=== PATIENT | male | born 1960 | race Native Hawaiian/Other Pacific Islander ===

== ENCOUNTER 2017-10-17 09:53 | Outpatient (CLI) | payer BC ==
[~2017-10-17 09:53] MED LIST: ASTAGRAF XL1 MG PO; DILT30TA24 PO; JANUVIA100 MG PO; OMEPRAZOLE40 MG PO
[2017-10-17 10:08] LABS: PLATELET COUNT 217 K/uL (142-355)
[2017-10-17 10:23] LABS: POTASSIUM 3.7 mmol/L (3.6-5.2)
== END 2017-10-17 19:43 | disposition home or self-care (01) ==
LOC: LABW 09:53
PROVIDERS: Internal Medicine Pulmonary Disease
DX: Z94.2 Lung transplant status (principal); Z29.8 Encounter for other specified prophylactic measures; E83.49 Other disorders of magnesium metabolism; Z79.899 Other long term (current) drug therapy; Z51.81 Encounter for therapeutic drug level monitoring
CPT/HCPCS: 36415; 80053; 80197; 83735; 85027

== ENCOUNTER 2017-12-18 09:12 | Outpatient (CLI) | payer BC ==
[2017-12-18 09:53] LABS: POTASSIUM 3.9 mmol/L (3.6-5.2)
[2017-12-18 09:56] LABS: PLATELET COUNT 203 K/uL (142-355)
[2018-02-07] MEDS ORDERED: MAGNESIUM GLUCONATE PO (07:28)
== END 2017-12-18 23:11 | disposition home or self-care (01) ==
LOC: LABW 09:12
PROVIDERS: Internal Medicine Pulmonary Disease
DX: Z94.2 Lung transplant status (principal); T86.819 Unspecified complication of lung transplant; Z29.8 Encounter for other specified prophylactic measures; E83.49 Other disorders of magnesium metabolism; Z79.899 Other long term (current) drug therapy; Z51.81 Encounter for therapeutic drug level monitoring
CPT/HCPCS: 36415; 80053; 80197; 83735; 85027

== ENCOUNTER 2018-01-07 08:00 | Emergency (ER) | payer BC ==
[~2018-01-07] VITALS: Ht 177.8 cm; Wt 81.6 kg
[2018-01-07 09:03] LABS: POTASSIUM 4.6 mmol/L (3.6-5.2)
[2018-01-07 09:11] LABS: PLATELET COUNT 264 K/uL (142-355)
[2018-01-07 10:03] VITALS: BP 113/72; TEMP 98
[2018-02-07] MEDS ORDERED: MAGNESIUM GLUCONATE PO (07:28)
== END 2018-01-07 10:03 | disposition home or self-care (01) ==
LOC: ED 08:00
PROVIDERS: Emergency Medicine
DX: M25.551 Pain in right hip (principal); M25.561 Pain in right knee; Z79.01 Long term (current) use of anticoagulants; Z94.2 Lung transplant status; Z94.4 Liver transplant status
CPT/HCPCS: 80053; 85007; 85027; 85379; 96374; 99284; J2175

== ENCOUNTER 2018-01-21 08:28 | Outpatient (CLI) | payer BC ==
[2018-01-21 10:28] LABS: PLATELET COUNT 249 K/uL (142-355)
[2018-01-21 10:37] LABS: POTASSIUM 4.3 mmol/L (3.6-5.2)
== END 2018-01-21 21:30 | disposition home or self-care (01) ==
LOC: LAB 08:28
PROVIDERS: Internal Medicine Pulmonary Disease
DX: Z94.2 Lung transplant status (principal); T86.819 Unspecified complication of lung transplant; Z29.8 Encounter for other specified prophylactic measures; E83.49 Other disorders of magnesium metabolism; Z79.899 Other long term (current) drug therapy; Z51.81 Encounter for therapeutic drug level monitoring
CPT/HCPCS: 36415; 80053; 80197; 83735; 85027

== ENCOUNTER 2018-01-29 11:39 | Outpatient (CLI) | payer BC ==
[2018-01-29 12:12] LABS: POTASSIUM 4.5 mmol/L (3.6-5.2)
[2018-01-29 12:19] LABS: PLATELET COUNT 243 K/uL (142-355)
== END 2018-01-29 22:10 | disposition home or self-care (01) ==
LOC: LAB 11:39
PROVIDERS: Internal Medicine Pulmonary Disease
DX: Z94.2 Lung transplant status (principal); T86.819 Unspecified complication of lung transplant; Z29.8 Encounter for other specified prophylactic measures; E83.49 Other disorders of magnesium metabolism; Z79.899 Other long term (current) drug therapy; Z51.81 Encounter for therapeutic drug level monitoring
CPT/HCPCS: 36415; 80053; 80197; 83735; 85027

== ENCOUNTER 2018-02-07 06:47 | Emergency (ER) | payer BC ==
[~2018-02-07] VITALS: Ht 177.8 cm; Wt 81.6 kg
[2018-02-07 06:50] VITALS: BP 102/44; TEMP 102.8
[2018-02-07] MEDS ORDERED: ENVARSUS XR4 MG PO (07:20)
[2018-02-07] MEDS ORDERED: CELLCEPT500 MG PO (07:21)
[2018-02-07] MEDS ORDERED: PREDNISONE10 M1 PO (07:22)
[2018-02-07] MEDS ORDERED: ELIQUIS5 MG PO (07:22)
[2018-02-07] MEDS ORDERED: METOPROLOL25 M1 PO (07:22)
[2018-02-07] MEDS ORDERED: MIDODRINE5 MG PO (07:23)
[2018-02-07] MEDS ORDERED: REMERON SOLTAB30 MG PO (07:24)
[2018-02-07] MEDS ORDERED: DILT-XR180 MG PO (07:24)
[2018-02-07] MEDS ORDERED: MELATONIN PO (07:25)
[2018-02-07] MEDS ORDERED: ASPIRIN81 M1 PO (07:25)
[2018-02-07] MEDS ORDERED: VITAMIN D31000 UNIT PO (07:25)
[2018-02-07] MEDS ORDERED: CVS OMEPRAZOLE20 MG PO (07:26)
[2018-02-07] MEDS ORDERED: 904272561 PO (07:26)
[2018-02-07] MEDS ORDERED: JANUVIA100 MG PO (07:27)
[2018-02-07] MEDS ORDERED: [UNRECOGNIZED DRUG - OTHER] PO (07:28)
[2018-02-07] MEDS ORDERED: CALCIUM500 M1 PO (07:28)
[2018-02-07] MEDS ORDERED: VALGANCICLOVIR450 MG PO (07:29)
[2018-02-07] MEDS ORDERED: TRESIBA FL100 UNIT/M SC (07:29)
[2018-02-07 07:49] LABS: PLATELET COUNT 165 K/uL (142-355)
[2018-02-07 08:03] LABS: POTASSIUM 4.2 mmol/L (3.6-5.2)
== END 2018-02-07 15:30 | disposition still patient (30) ==
LOC: ED 06:47
DX: J18.9 Pneumonia, unspecified organism (principal); A41.9 Sepsis, unspecified organism; J02.0 Streptococcal pharyngitis; R00.0 Tachycardia, unspecified
CPT/HCPCS: 36415; 80053; 81000; 85027; 87040; 87077; 87088; 87185; 87205; 87804; 87880; 93005; 96360; 96361; 96365; 99285; J0696; J7120

== ENCOUNTER 2018-02-07 15:33 | Outpatient (CLI) | payer BC ==
[~2018-02-07 15:33] MED LIST changes: +904272561 PO; +ASPIRIN81 M1 PO; +CALCIUM500 M1 PO; +CELLCEPT500 MG PO; +CVS OMEPRAZOLE20 MG PO; +DILT-XR180 MG PO; +ELIQUIS5 MG PO; +ENVARSUS XR4 MG PO; +MELATONIN PO; +METOPROLOL25 M1 PO; +MIDODRINE5 MG PO; +PREDNISONE10 M1 PO; +REMERON SOLTAB30 MG PO; +TRESIBA FL100 UNIT/M SC; +VALGANCICLOVIR450 MG PO; +VITAMIN D31000 UNIT PO; +[UNRECOGNIZED DRUG - OTHER] PO
== END 2018-02-07 15:40 | disposition short-term general hospital (02) ==
LOC: AMB 15:33
DX: J18.9 Pneumonia, unspecified organism (principal); A41.9 Sepsis, unspecified organism; J02.0 Streptococcal pharyngitis; R00.0 Tachycardia, unspecified
CPT/HCPCS: A0425; A0427

== ENCOUNTER 2018-05-17 18:06 | Emergency (ER) | payer BC ==
[~2018-05-17] VITALS: Ht 177.8 cm; Wt 81.6 kg
[~2018-05-17 18:06] MED LIST changes: +MAGNESIUM GLUCONATE PO; -[UNRECOGNIZED DRUG - OTHER] PO
[2018-05-17 18:16] VITALS: TEMP 97.3
[2018-05-17 20:26] LABS: PLATELET COUNT 417 K/uL (142-355)
[2018-05-17 21:51] LABS: POTASSIUM 8.4 mmol/L (3.6-5.2)
[2018-05-18 00:03] LABS: POTASSIUM 8.3 mmol/L (3.6-5.2)
[2018-05-18] MEDS ORDERED: OLANZAPINE5 M1 PO (00:40)
[2018-05-18] MEDS ORDERED: PREDNISONE5 MG PO (00:40)
[2018-05-18] MEDS ORDERED: MULTI VITAMIN1 TAB PO (00:41)
[2018-05-18] MEDS ORDERED: PROGRAF1 MG PO ×2 (00:43)
[2018-05-18] MEDS ORDERED: SONATA10 MG PO (00:44)
[2018-05-18] MEDS ORDERED: WARF1TAB7 PO (00:44)
[2018-05-18] MEDS ORDERED: PACERONE200 MG PO (00:45)
[2018-05-18] MEDS ORDERED: IRON PO (00:46)
[2018-05-18] MEDS ORDERED: FLUC200T PO (00:46)
[2018-05-18] MEDS ORDERED: FUROSEMIDE20 MG PO (00:47)
[2018-05-18] MEDS ORDERED: NOVOLIN N100 UNIT/2 SC (00:48)
[2018-05-18] MEDS ORDERED: HUMALOG KW100 UNIT/M SC (00:48)
[2018-05-18 03:57] LABS: POTASSIUM 7.5 mmol/L (3.6-5.2)
[2018-05-18 06:15] VITALS: BP 130/77
== END 2018-05-18 06:26 | disposition short-term general hospital (02) ==
LOC: ED 18:06
PROVIDERS: Family Medicine
DX: E87.5 Hyperkalemia (principal); N17.8 Other acute kidney failure
CPT/HCPCS: 36415; 80048; 80053; 81000; 83735; 85027; 93005; 94664; 96361; 96365; 96375; 99285; J0610; J1815; J1940; J3490; J7060

== ENCOUNTER 2018-05-18 06:25 | Outpatient (CLI) | payer BC ==
[~2018-05-18 06:25] MED LIST changes: +FLUC200T PO; +FUROSEMIDE20 MG PO; +HUMALOG KW100 UNIT/M SC; +IRON PO; +MULTI VITAMIN1 TAB PO; +NOVOLIN N100 UNIT/2 SC; +OLANZAPINE5 M1 PO; +PACERONE200 MG PO; +PREDNISONE5 MG PO; +PROGRAF1 MG PO; +SONATA10 MG PO; +WARF1TAB7 PO
== END 2018-05-18 07:23 | disposition short-term general hospital (02) ==
LOC: AMB 06:25
DX: E87.5 Hyperkalemia (principal); N17.8 Other acute kidney failure
CPT/HCPCS: A0425; A0427

== ENCOUNTER 2018-05-28 10:28 | Outpatient (CLI) | payer BC ==
[2018-05-28 12:26] LABS: PLATELET COUNT 287 K/uL (142-355)
[2018-05-28 14:25] LABS: POTASSIUM 6.6 mmol/L (3.6-5.2)
== END 2018-05-28 21:37 | disposition home or self-care (01) ==
LOC: LAB 10:28
PROVIDERS: Internal Medicine Pulmonary Disease
DX: Z94.2 Lung transplant status (principal); T86.819 Unspecified complication of lung transplant; Z29.8 Encounter for other specified prophylactic measures; E83.49 Other disorders of magnesium metabolism; Z79.899 Other long term (current) drug therapy; Z51.81 Encounter for therapeutic drug level monitoring
CPT/HCPCS: 36415; 80053; 80197; 83735; 85027

== ENCOUNTER 2018-05-28 16:31 | Emergency (ER) | payer BC ==
[~2018-05-28] VITALS: Ht 177.8 cm; Wt 72.6 kg
[2018-05-28 19:42] LABS: PLATELET COUNT 277 K/uL (142-355)
[2018-05-28 20:04] LABS: POTASSIUM 7.3 mmol/L (3.6-5.2)
[2018-05-28 22:33] VITALS: BP 117/68; TEMP 98.3
== END 2018-05-28 22:53 | disposition short-term general hospital (02) ==
LOC: ED 16:31
PROVIDERS: Family Medicine
DX: E87.5 Hyperkalemia (principal); N18.9 Chronic kidney disease, unspecified; Z94.2 Lung transplant status; Z94.4 Liver transplant status
CPT/HCPCS: 36415; 80053; 85027; 93005; 94664; 96361; 96374; 96375; 96376; 99285; J0610; J1815; J2405; J7060

== ENCOUNTER 2018-06-09 11:17 | Outpatient (CLI) | payer BC ==
[2018-06-09 11:44] LABS: PLATELET COUNT 247 K/uL (142-355)
[2018-06-09 11:55] LABS: POTASSIUM 4.8 mmol/L (3.6-5.2)
== END 2018-06-09 19:12 | disposition home or self-care (01) ==
LOC: LAB 11:17
PROVIDERS: Nurse Practitioner Adult Health
DX: Z94.2 Lung transplant status (principal)
CPT/HCPCS: 36415; 80069; 80197; 83010; 83615; 83735; 85027

== ENCOUNTER 2018-06-16 10:27 | Outpatient (CLI) | payer BC ==
[2018-06-16 10:45] LABS: PLATELET COUNT 298 K/uL (142-355)
[2018-06-16 11:30] LABS: POTASSIUM 5.6 mmol/L (3.6-5.2)
== END 2018-06-16 19:47 | disposition home or self-care (01) ==
LOC: LAB 10:27
PROVIDERS: Nurse Practitioner Adult Health
DX: Z94.2 Lung transplant status (principal)
CPT/HCPCS: 36415; 80069; 80197; 83010; 83615; 83735; 85027

== ENCOUNTER 2018-06-23 10:15 | Outpatient (CLI) | payer BC ==
[2018-06-23 10:37] LABS: PLATELET COUNT 307 K/uL (142-355)
[2018-06-23 11:16] LABS: POTASSIUM 4.6 mmol/L (3.6-5.2)
== END 2018-06-23 19:17 | disposition home or self-care (01) ==
LOC: LAB 10:15
PROVIDERS: Nurse Practitioner Adult Health
DX: Z94.2 Lung transplant status (principal)
CPT/HCPCS: 36415; 80069; 80197; 83010; 83615; 83735; 85027